=== PATIENT | female | born 1955 | race Caucasian/White ===

== ENCOUNTER → 2017-11-20 | Outpatient (CLI) | payer BC ==
[~2017-11-20] MED LIST: MULT-1081 PO; ROSU20TA23 PO
--- NOTE | 2017-11-20 15:47 | RADIOLOGY IMAGING REPORT ---
FACILITY: [facility] - [place] PATIENT NAME: YASMANI ELIZABETH : [id number] MR: [id number] V: [id number] EXAM DATE: ORDERING PHYSICIAN: DYLAN GAO TECHNOLOGIST: Tracy Oviedo PROCEDURE:BILATERAL DIGITAL SCREENING MAMMOGRAM WITH CAD ASSISTED INTERPRETATION & 3D TOMOSYNTHESIS COMPARISON:Prior mammograms 06/25/16, 03/27/15, 04/05/13, 08/26/11. INDICATIONS:SCREENING FINDINGS: Mildly heterogeneous fibroglandular tissue is seen throughout the breasts. Most of the parenchymal pattern has remained stable allowing for difference in mammographic technique & patient positioning. There is a very dense lymph node in the Right axillary region not appreciated on the prior studies. Right breast Ultrasound is recommended for further evaluation of this lymph node. DIAGNOSTIC CATEGORY 0--INCOMPLETE: NEED ADDITIONAL IMAGING EVALUATION. RECOMMENDATIONS: ULTRASOUND: RIGHT BREAST. IMPRESSION: BIRADS 0: Incomplete Right breast Ultrasound recommended of the dense axillary lymph node on the Right. Dictated by: Iva Santiago M.D. on 11/20/2017 at 15:19 Transcribed by: JOSI on 11/20/2017 at 15:26 Approved by: Iva Santiago M.D. on 11/20/2017 at 15:46 [facility]
== END ==
LOC: MAMO 09:59
PROVIDERS: ATTEND Nurse Practitioner
DX: Z12.31 Encounter for screening mammogram for malignant neoplasm of breast (principal); R92.8 Other abnormal and inconclusive findings on diagnostic imaging of breast
CPT/HCPCS: 77063; 77067

== ENCOUNTER → 2017-12-01 | Outpatient (CLI) | payer BC ==
--- NOTE | 2017-12-01 17:19 | RADIOLOGY IMAGING REPORT ---
FACILITY: [facility] PATIENT NAME: Amelia Sotelo : 1955 MR: [id number] V: [id number] EXAM DATE: ORDERING PHYSICIAN: DYLAN GAO TECHNOLOGIST: Location: [facility] [place] Patient: Amelia Sotelo : 1955 Visit/Account:[id number] Date of Sevice: 12/01/2017 Carotid artery Doppler duplex ultrasound scan. HISTORY: Right carotid bruit. COMPARISON: None. A color flow Doppler duplex ultrasound scan with spectral analysis was performed on the carotid and v ertebral arteries bilaterally. Measurement of carotid stenosis is based on velocity parameters that correlate the residual internal carotid diameter with [place] Symptomatic Carotid Endarterecto my Trial (NASCET)- based stenosis levels. Right carotid peak systolic velocities are as follows: Superior right ICA - 93 cm/sec. Mid right ICA - 66 cm/sec. Proximal right ICA - 45 cm/sec. Right carotid bulb - 38 cm/sec. Superior right CCA - 69 cm/sec. Mid right CCA- 78 cm/sec. Inferior right CCA- 66 cm/sec. Proximal right ECA- 64 cm/sec. Mid right vertebral- 41 cm/sec. Right ICA/CCA ratio- 1.2 ( normal < 1.5 ). Antegrade right vertebral artery flow- YES. Left carotid peak systolic velocities are as follows: Superior left ICA - 103 cm/sec. Mid left ICA- 72 cm/sec. Proximal left ICA- 66 cm/sec. Left carotid bulb- 59 cm/sec. Superior left CCA- 58 cm/sec. Mid left CCA- 65 cm/sec. Inferior left CCA- 124 cm/sec. Proximal left ECA- 60 cm/sec. Mid left vertebral- 48 cm/sec. Left ICA/CCA ratio- 1.6 ( normal < 1.5). Antegrade left vertebral artery flow- YES. Mild atherosclerotic plaque is present in the carotid bulbs and common carotid arteries bilaterally. A 1.9 cm complex cystic nodule is present in the left thyroid lobe. IMPRESSION: Mild bilateral carotid atherosclerosis without evidence of hemodynamically significant focal stenosis . 1.9 cm left thyroid nodule. A thyroid ultrasound might be considered for further evaluation. Report Dictated By: Raphael Gleason MD at 12/01/2017 5:12 PM Report E-Signed By: Raphael Gleason MD at 12/01/2017 5:15 PM WSN:[email or web address]
--- NOTE | 2017-12-03 16:21 | RADIOLOGY IMAGING REPORT ---
FACILITY: [facility] PATIENT NAME: YASMANI ELIZABETH : [id number] MR: [id number] V: [id number] EXAM DATE: [id number] ORDERING PHYSICIAN: DYLAN GAO TECHNOLOGIST: Matilde Rider PROCEDURE:US RIGHT BREAST COMPLETE COMPARISON:Prior Right mammogram of 11/20/17. INDICATIONS:FURTHER EVAL FINDINGS: There are 3 abnormal appearing lymph nodes in the Right axillary region that appear slightly irregular & are diffusely hypoechoic ranging in size from 1 x 1 x 1.2cm to 1.8 x 1.3 x 1.9cm. Ultrasound guided core biopsy of these 3 lymph nodes recommended. In the 10 o'clock position of the Right breast there is a small ovoid region measuring approximately 2.5 x 1.3 x 3.1mm. It appears to blend into the surrounding tissue & likely represents a small island of fibroglandular tissue. Also incidentally noted is a 5mm cyst in the Right retroareolar breast. DIAGNOSTIC CATEGORY 4--SUSPICIOUS FOR MALIGNANCY. RECOMMENDATIONS: ULTRASOUND-GUIDED CORE BIOPSY: RIGHT BREAST. IMPRESSION: BIRADS 4: Suspicious for malignancy Ultrasound guided core biopsy of the 3 abnormal appearing Right axillary lymph nodes recommended. Dictated by: Iva Santiago M.D. on 12/02/2017 at 9:33 Transcribed by: JOSI on 12/03/2017 at 8:52 Approved by: Iva Santiago M.D. on 12/03/2017 at 16:20 [facility]
== END ==
LOC: US 00:57
PROVIDERS: ATTEND Nurse Practitioner
DX: I65.23 Occlusion and stenosis of bilateral carotid arteries (principal); N60.01 Solitary cyst of right breast; R59.0 Localized enlarged lymph nodes; N63.11 Unspecified lump in the right breast, upper outer quadrant
CPT/HCPCS: 93880

== ENCOUNTER 2017-12-07 15:52 | Outpatient (RCR) | payer BC ==
[2017-12-07 16:21] LABS: INR 0.96
--- NOTE | 2017-12-08 17:27 | RADIOLOGY IMAGING REPORT ---
FACILITY: [facility] PATIENT NAME: Amelia Sotelo : 1955 MR: [id number] V: [id number] EXAM DATE: ORDERING PHYSICIAN: RAFAELA MCKINNEY TECHNOLOGIST: Location: [facility] [place] Patient: Amelia Sotelo : 1955 Visit/Account:[id number] Date of Sevice: 12/08/2017 Exam type: LYMPH NODE BIOPSY History: Three abnormal-appearing right axillary lymph nodes by sonography Comparison: Right breast ultrasound December 01, 2017 and bilateral mammogram November 20, 2017. Findings: Informed consent was obtained. The patient's right axilla was prepped and draped in usual sterile fa shion. Local anesthesia was accomplished with 1% lidocaine. Under sonographic guidance two 18-gauge core biopsies were obtained through the diffusely hypoechoic lymph node in the inferior lateral port ion of the right axilla. The samples were placed in formalin. A biopsy clip was placed. Attention was then directed towards the superior medial right axillary lymph node. Local anesthesia was again accomplished with 1% lidocaine. Two 18-gauge core biopsies were obtained through this lymp h node under sonographic guidance. The samples were placed in formalin. A biopsy clip was placed. Attention was then directed towards the inferior medial right axillary lymph node. Local anesthesia again accomplished with, 1% lidocaine. Two 18-gauge core biopsies were obtained through the lymph no de utilizing sonographic guidance. The samples were placed in formalin. A biopsy clip was placed. All the samples were sent to laboratory for evaluation. The procedures were accomplished without akiko arent complication. The post biopsy right mammogram did demonstrate biopsy clips in and adjacent to the biopsied lymph nodes. IMPRESSION: 1. Successful sonographically guided biopsy of three right axillary lymph nodes Report Dictated By: Iva Santiago MD at 12/08/2017 5:15 PM Report E-Signed By: Iva Santiago MD at 12/08/2017 5:19 PM WSN:MARI
== END 2017-12-08 18:00 | disposition home or self-care (01) ==
LOC: US 15:52 → EDSTATUS 12-08 15:52 → US 12-08 18:00
PROVIDERS: ATTEND Nurse Practitioner
DX: R09.89 Other specified symptoms and signs involving the circulatory and respiratory systems (principal); R93.8 Abnormal findings on diagnostic imaging of other specified body structures; R59.9 Enlarged lymph nodes, unspecified; C88.4 Extranodal marginal zone B-cell lymphoma of mucosa-associated lymphoid tissue [MALT-lymphoma]
CPT/HCPCS: 36415; 38505; 76942; 77065; 85610; 88305; 88342; 88344

== ENCOUNTER 2018-06-15 09:24 | Outpatient (RCR) | payer BC ==
[2018-04-12 11:27] VITALS: BP 142/75
[2018-04-12 12:38] LABS: PLATELET COUNT, AUTOMATED 166 K/uL (150-450)
--- NOTE | 2018-04-13 20:02 | [facility] ONCOLOGY NOTE ---
EVENT DATE: April 12, 2018 CHIEF COMPLAINT/REASON FOR VISIT Ms. Sotelo is a pleasant, 62-year-old female with stage II/marginal zone lymphoma, here for followup. HISTORY OF PRESENT ILLNESS Ms. Sotelo returns. Please see my notes from [place] for additional details. She was diagnosed with stage II low-grade, non-Hodgkin lymphoma/marginal zone lymphoma (incolasa) in the spring. PET scan was done which showed a very low burden of disease. This was discovered in the right axilla, and she has low-grade disease in the hilar lymphadenopathy as well. No extensive disease beyond that. She continues to feel "great." She has no symptoms of concern, no B symptoms. She does not notice any concerning lumps or bumps. No weight loss of concern. No other abnormalities at this time. REVIEW OF SYSTEMS CONSTITUTIONAL: No fevers, chills, or weight chance. HEENT: No headache or vision changes. CARDIOVASCULAR: No chest pain, dyspnea on exertion, or edema. RESPIRATORY: No shortness of breath, wheeze, or cough. GASTROINTESTINAL: No nausea, vomiting, diarrhea, or constipation. GENITOURINARY: No dysuria or hematuria. MUSCULOSKELETAL: No weakness or joint pain. No myalgias or arthralgias. PSYCHIATRIC: No anxiety or depression. NEUROLOGIC: No weakness or numbness. Remainder of 14-point review of systems otherwise negative. PHYSICAL EXAMINATION VITAL SIGNS: Blood pressure 142/75, pulse 91, respiratory rate 16, temperature 97.6 Fahrenheit, oxygen saturation 96% on room air. Weight 63.3 kg. Pain zero/10, fatigue zero/10. GENERAL: Stable condition, resting comfortably in the chair. HEENT: Normocephalic, atraumatic. CARDIOVASCULAR: Regular rate and rhythm. LUNGS: Clear. ABDOMEN: Soft, nontender. No organomegaly. EXTREMITIES: No clubbing, cyanosis, or edema. LYMPHATIC: No appreciable cervical, supraclavicular, axillary, or inguinal adenopathy. Remainder of physical exam otherwise unremarkable. IMPRESSION AND PLAN Ms. Sotelo is a pleasant, 62-year-old female with stage II/marginal zone lymphoma, here for followup. She currently does not require any treatment at this time. She is completely asymptomatic and has low-burden disease. We discussed how early treatment does not prolong survival, but could add the potential for side effects. As such, we will continue to watch her. For the first year, I would like to see her every three months, and then hopefully we can transition to every six months starting in 2019. I answered all of her questions today. She is very satisfied with this. BILLING Level 4. MTDD
[~2018-06-15 09:24] MED LIST changes: +ASPI-1471 PO; +LISI20TA29 PO
[2018-06-15 09:50] VITALS: BP 133/83
[2018-06-15 09:53] LABS: PLATELET COUNT, AUTOMATED 185 K/uL (150-450)
== END 2018-07-08 ==
LOC: SPU 09:24
PROVIDERS: ATTEND Internal Medicine
DX: C85.94 Non-Hodgkin lymphoma, unspecified, lymph nodes of axilla and upper limb (principal)
CPT/HCPCS: 36415; 82040; 82247; 82310; 82374; 82435; 82565; 82784; 82947; 83615; 84075; 84132; 84155; 84295; 84450; 84460; 84520; 85025; 99212

== ENCOUNTER 2019-01-03 10:50 | Outpatient (RCR) | payer BC ==
[2018-12-27 10:01] VITALS: BP 115/73
[2018-12-27 10:05] LABS: PLATELET COUNT, AUTOMATED 204 K/uL (150-450)
[~2019-01-03 10:50] MED LIST changes: -ROSU20TA23 PO; +ROSU20TA24 PO
[2019-01-03 10:57] VITALS: BP 141/84
--- NOTE | 2019-01-04 10:53 | [facility] ONCOLOGY NOTE ---
EVENT DATE: January 03, 2019 CHIEF COMPLAINT/REASON FOR VISIT Ms. Sotelo is a pleasant 63-year old female with stage II marginal zone lymphoma here for followup. This is the nicolasa subtype discovered in the right axilla on mammogram. HISTORY OF PRESENT ILLNESS Amelia returns. Please see my notes from [place] for more details. She was diagnosed with a stage II low-grade non-Hodgkin's lymphoma - marginal zone lymphoma (nicolasa) in the spring after a routine mammogram. A PET scan was done and showed a very low burden of disease. These were discovered incidentally in the right axilla and biopsy-proven. No significant disease beyond that. She notes no change in adenopathy. She continues to feel great with no concerning symptoms. No new lumps or bumps. No weight loss, night sweats, fevers, chills or other concerns. No issues with infection. Her IgM is slightly elevated and her IgG is slightly low but I think her immune system is quite strong. No other new issues today. REVIEW OF SYSTEMS CONSTITUTIONAL: No fevers, chills, or weight chance. HEENT: No headache or vision changes. CARDIOVASCULAR: No chest pain, dyspnea on exertion, or edema. RESPIRATORY: No shortness of breath, wheeze, or cough. GASTROINTESTINAL: No nausea, vomiting, diarrhea, or constipation. GENITOURINARY: No dysuria or hematuria. MUSCULOSKELETAL: No weakness or joint pain. No myalgias or arthralgias. PSYCHIATRIC: No anxiety or depression. NEUROLOGIC: No weakness or numbness. Remainder of 14-point review of systems otherwise negative. PHYSICAL EXAMINATION VITAL SIGNS: Blood pressure 141/84, which may be related to some anxiety about her visit today, pulse 76, respiratory rate 16, temperature 97.9 Fahrenheit, oxygen saturation 96% on room air. Weight 66.2 kg. Pain 0/10, fatigue 0/10. GENERAL: Stable condition, resting comfortably in the chair. HEENT: Normocephalic, atraumatic. CARDIOVASCULAR: Regular rate and rhythm. LUNGS: Clear to auscultation bilaterally. ABDOMEN: Soft, nontender. No organomegaly or penny. LYMPHATIC: No appreciable cervical or supraclavicular adenopathy. There is a small lymph node that is soft that I feel in the right axilla but otherwise no adenopathy. EXTREMITIES: No clubbing, cyanosis or edema. SKIN: No rashes. Remainder of physical exam otherwise unremarkable. IMPRESSION/REPORT/PLAN Ms. Sotelo is a very pleasant 63-year-old female with the following: Stage II marginal-zone lymphoma, here for followup. We continue to recommend active surveillance. Her immune system is quite strong and her IgG is only minimally low. We would like to check her labs every three to four months and I think this would be most helpful for the patient and her anxiety as well. I answered all of her many questions today. BILLING Return visit, level 3. Total time 20 minutes, counseling time 15. MTDD
== END 2019-01-17 16:20 | disposition home or self-care (01) ==
LOC: ONC 10:50
PROVIDERS: ATTEND Internal Medicine
DX: C85.84 Other specified types of non-Hodgkin lymphoma, lymph nodes of axilla and upper limb (principal)
CPT/HCPCS: 36415; 36592; 82040; 82247; 82310; 82374; 82435; 82565; 82784; 82947; 83615; 84075; 84132; 84155; 84295; 84450; 84460; 84520; 85025; 99212

== ENCOUNTER → 2019-01-14 | Outpatient (CLI) | payer BC ==
--- NOTE | 2019-01-14 15:20 | RADIOLOGY IMAGING REPORT ---
FACILITY: [facility] PATIENT NAME: YASMANI ELIZABETH : [id number] MR: [id number] V: [id number] EXAM DATE: ORDERING PHYSICIAN: DYLAN GAO TECHNOLOGIST: Leona Manjarrez PROCEDURE: BILATERAL DIGITAL SCREENING MAMMOGRAM WITH CAD ASSISTED INTERPRETATION & 3D TOMOSYNTHESIS REASON FOR STUDY: Screening FAMILY HISTORY OF BREAST CANCER: None BREAST PROCEDURES/TREATMENTS: None, however the patient did have a Right axillary lymph node biopsy consistent with lymphoma. COMPARISON: 11/20/17, 06/25/16, 03/27/15, 04/05/13 VIEWS OBTAINED: Bilateral 2D & 3D full field CC & MLO projections BREAST DENSITY: There are scattered areas of fibroglandular density throughout the breasts. MAMMOGRAM FINDINGS: The parenchymal pattern has remained stable allowing for difference in mammographic technique & patient positioning. The previously noted dense axillary lymph node is no longer seen. IMPRESSION: BIRADS 1: Negative. DIAGNOSTIC CATEGORY 1--NEGATIVE. RECOMMENDATIONS: ROUTINE MAMMOGRAM AND CLINICAL EVALUATION. Dictated by: Iva Santigao M.D. on 01/14/2019 at 11:38 Transcribed by: MAGDIEL on 01/14/2019 at 12:28 Approved by: Iva Santiago M.D. on 01/14/2019 at 15:19 [facility]
== END ==
LOC: MAMO 01:54
PROVIDERS: ATTEND Nurse Practitioner
DX: Z12.31 Encounter for screening mammogram for malignant neoplasm of breast (principal)
CPT/HCPCS: 77063; 77067